=== PATIENT | female | born 2005 | race Caucasian/White ===

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

== ENCOUNTER 2024-02-12 23:51 | Emergency (ER) | payer BC ==
[2024-02-13] MEDS: Ibuprofen 400 MG Tab PO ONE (00:43)
[2024-02-13] MEDS: Acetaminophen 500 MG Tab PO ONE (00:44)
[2024-02-13 00:53] LABS: BILIRUBIN,URINE NEGATIVE (NEGATIVE); COLOR,URINE YELLOW; GLUCOSE,URINE NEGATIVE (NEGATIVE); KETONES,URINE NEGATIVE (NEGATIVE); LEUKOCYTE ESTERASE,URINE LARGE (NEGATIVE); NITRITE,URINE NEGATIVE (NEGATIVE); OCCULT BLOOD,URINE LARGE (NEGATIVE); PROTEIN,URINE 30 mg/dL (NEGATIVE); UROBILINOGEN,URINE 0.2 EU/dL (<2.0)
[2024-02-13 00:55] LABS: APPEARANCE,URINE CLOUDY
[2024-02-13 01:03] LABS: BACTERIA,URINE 2+ (NEGATIVE); EPITHELIAL CELLS,URINE FEW (NONE-FEW); RBC,URINE 50-75 (0-2/HPF); WBC,URINE 50-75 (0-5/HPF)
[2024-02-13] MEDS: Cefdinir 300 MG Cap PO ONE (01:03)
[2024-02-13 01:11] VITALS: BP 124/84; PULSE 102
== END 2024-02-13 01:19 | disposition home or self-care (01) ==
LOC: MW.ED 23:51
DX: N12 Tubulo-interstitial nephritis, not specified as acute or chronic (principal); F17.210 Nicotine dependence, cigarettes, uncomplicated; Z75.8 Other problems related to medical facilities and other health care; Z88.0 Allergy status to penicillin; Z88.1 Allergy status to other antibiotic agents; Z79.899 Other long term (current) drug therapy
CPT/HCPCS: 81001; 81025; 99284; A9270

== ENCOUNTER 2024-07-11 05:58 | Emergency (ER) | payer BC ==
[2024-07-11 06:17] LABS: APPEARANCE,URINE CLEAR; BILIRUBIN,URINE NEGATIVE (NEGATIVE); COLOR,URINE YELLOW; GLUCOSE,URINE NEGATIVE (NEGATIVE); KETONES,URINE NEGATIVE (NEGATIVE); LEUKOCYTE ESTERASE,URINE MODERATE (NEGATIVE); NITRITE,URINE NEGATIVE (NEGATIVE); OCCULT BLOOD,URINE SMALL (NEGATIVE); PH,URINE 7.5 (5.0-8.0); PROTEIN,URINE NEGATIVE (NEGATIVE); UROBILINOGEN,URINE 0.2 EU/dL (<2.0)
[2024-07-11 06:29] LABS: BACTERIA,URINE RARE (NEGATIVE); EPITHELIAL CELLS,URINE RARE (NONE-FEW); MUCUS,URINE LIGHT (NONE-MOD); RBC,URINE NONE SEEN (0-2/HPF); WBC,URINE 0-3 (0-5/HPF)
[2024-07-11] MEDS: Nitrofurantoin Monohydrate/Macrocrystalline 100 MG Cap PO STA (07:02)
[2024-07-11 07:22] VITALS: BP 121/79; PULSE 82
== END 2024-07-11 07:21 | disposition home or self-care (01) ==
LOC: MW.ED 05:58
DX: N30.00 Acute cystitis without hematuria (principal); Z88.0 Allergy status to penicillin; Z88.1 Allergy status to other antibiotic agents
CPT/HCPCS: 81001; 81025; 99283; A9270

== ENCOUNTER 2024-11-04 16:08 | Emergency (ER) | payer BC ==
[2024-11-04 16:41] VITALS: BP 132/91; PULSE 85
== END 2024-11-04 18:13 | disposition home or self-care (01) ==
LOC: MW.ED 16:08
DX: S46.912A Strain of unspecified muscle, fascia and tendon at shoulder and upper arm level, left arm, initial encounter (principal); Z88.0 Allergy status to penicillin; Z88.1 Allergy status to other antibiotic agents; Z75.8 Other problems related to medical facilities and other health care; W01.0XXA Fall on same level from slipping, tripping and stumbling without subsequent striking against object, initial encounter
CPT/HCPCS: 73060-26-LT; 73060-LT; 73080-26-LT; 73080-LT; 99282; 99283